=== PATIENT | female | born 1975 | race Caucasian/White ===

== ENCOUNTER → 2021-06-19 | Outpatient (CLI) | payer BC ==
--- NOTE | 2021-06-19 11:51 | Diagnostic Imaging Report ---
PROCEDURE: MRI pelvis without contrast. TECHNIQUE: Multiplanar, multisequence MRI of the pelvis was performed without contrast. INDICATION: Back pain. COMPARISON: Lumbar spine MRI performed this same day. FINDINGS: Bones: No osteonecrosis in the femoral heads. No bone marrow edema in the pelvis or proximal femurs that would suggest stress reaction. There are no advanced degenerative changes in either hip. No hip effusion. No features of sacroiliitis. Muscles and tendons: The bilateral distal iliopsoas tendons are intact. The proximal hamstring complexes are normal. The gluteus medius and minimus are intact on both sides. Adductor musculature is normal. The piriformis muscles are symmetric. Other: No free pelvic fluid. No pelvic or inguinal lymphadenopathy. The ovaries are physiologic in appearance. There are a few nabothian gland cysts noted at the level of the cervix. IMPRESSION: 1. No muscle strain or tendon tear. 2. No osteonecrosis or advanced degenerative changes in either hip. Dictated by: Dictated on workstation # [id number]
--- NOTE | 2021-06-19 12:28 | Diagnostic Imaging Report ---
EXAMINATION: Lumbar spine MRI without contrast from 06/19/2021. TECHNIQUE: Multiplanar, multisequence MRI of the lumbar spine was performed without contrast. INDICATION: Back pain. FINDINGS: Visualized distal cord and tip of the conus are unremarkable in appearance and location. There is normal height and alignment of the vertebral bodies. L1-L2: There is disc desiccation with minimal left paracentral bulging disc material. There is bilateral facet hypertrophy. There is no central stenosis. Neuroforamina are patent. L2-L3: There is intervertebral disc space narrowing, disc desiccation, and a right paracentral bulging disc with bilateral facet and ligamentum flavum hypertrophy. There is no significant central stenosis but there is mild narrowing of the right lateral recess. There is moderate right and mild left neuroforaminal stenosis. L3-L4: There is disc desiccation with a broad-based bulging disc containing a central annular tear. There is bilateral facet and ligamentum flavum hypertrophy. No central stenosis. There is moderate bilateral neuroforaminal narrowing. L4-L5: There is disc desiccation with a broad-based bulging disc. There is bilateral facet and ligamentum flavum hypertrophy. There is mild narrowing of the left lateral recess. There is no significant central stenosis. There is moderate bilateral neuroforaminal narrowing. L5-S1: There is disc desiccation with bilateral facet and ligamentum flavum hypertrophy. There is no central stenosis. There is mild right and moderate left neuroforaminal narrowing. The visualized intra-abdominal structures are unremarkable. There are endplate changes at L2-L3 consistent with Modic type I degenerative disease. IMPRESSION: 1. Multilevel degenerative findings as discussed above. Dictated by: Dictated on workstation # [id number]
== END ==
LOC: RAD 09:17
PROVIDERS: ATTEND Family Medicine
DX: M47.816 Spondylosis without myelopathy or radiculopathy, lumbar region (principal); M47.817 Spondylosis without myelopathy or radiculopathy, lumbosacral region; M51.26 Other intervertebral disc displacement, lumbar region; M51.36 Other intervertebral disc degeneration, lumbar region; M51.37 Other intervertebral disc degeneration, lumbosacral region; M48.061 Spinal stenosis, lumbar region without neurogenic claudication; M48.07 Spinal stenosis, lumbosacral region; M24.28 Disorder of ligament, vertebrae
CPT/HCPCS: 72148; 72195